=== PATIENT | female | born 1985 | race African-American/Black ===

== ENCOUNTER 2019-06-14 09:49 | Emergency (ER) | payer OTHER, MEDICAID ==
[2019-06-14 10:01] VITALS: BP 113/74
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
[2019-06-14] MEDS ORDERED: IBUPROFEN PO ONE ×2 (10:42→10:45)
== END 2019-06-14 10:47 | disposition home or self-care (01) ==
LOC: ED 09:49
DX: R07.89 Other chest pain (principal); Z98.890 Other specified postprocedural states; Z98.51 Tubal ligation status; Z79.899 Other long term (current) drug therapy; V89.2XXA Person injured in unspecified motor-vehicle accident, traffic, initial encounter; Y93.89 Activity, other specified; Y92.481 Parking lot as the place of occurrence of the external cause; Y99.8 Other external cause status
CPT/HCPCS: 93005; 93010; 99283